=== PATIENT | female | born 1950 | race African-American/Black ===

== ENCOUNTER 2016-11-03 20:33 | Emergency (ER) | payer OTHER ==
[~2016-11-03] VITALS: Ht 160 cm; Wt 140.6 kg
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
[2016-11-03] MEDS ORDERED: IBUPROFEN600 MG ORAL (21:27)
[2016-11-03 22:00] VITALS: BP 118/73
[2016-11-03 22:01] VITALS: BP 118/73
--- NOTE | 2016-11-04 12:04 | Diagnostic Imaging Report ---
Indication: Pain 3 views of the left knee were obtained. Findings: No definite fracture is identified. There is moderate osteoarthritis with narrowing osteophyte formation and sclerosis. No definite joint effusion seen. Impression: Osteoarthritis
== END 2016-11-03 22:04 | disposition home or self-care (01) ==
LOC: EMR 21:25
DX: S80.02XA Contusion of left knee, initial encounter (principal); I10 Essential (primary) hypertension; Z88.0 Allergy status to penicillin; Z91.018 Allergy to other foods; V00.831A Fall from motorized mobility scooter, initial encounter; Y92.9 Unspecified place or not applicable; Y99.8 Other external cause status
CPT/HCPCS: 99283